=== PATIENT | female | born 1955 | race Caucasian/White ===

== ENCOUNTER 2016-09-18 11:20 | Day surgery (SDC) | payer MEDICARE ==
--- NOTE | ~2016-09-18 | EGD ---
EGD REPORT [facility] [address] [address] NAME: MÓNICA STEVE : 57 STATUS : REG [facility] PAT#: [id number] AGE: 61 ADM/REG DATE : 09/18/16 MR#: [id number] REPORT SERV DATE: 09/18/16 DICTATED BY: ABHISHEK SOLOMON DATE: 09/18/16 REPORT STATUS : Draft TRANSCRIBED BY: [facility] DATE: 09/18/16 Endoscopy Center Patient Name: Mónica Steve Date of : 1955 Attending MD: ABHISHEK SOLOMON MD Procedure Date No Time: 09/18/2016 Procedure: Upper GI endoscopy Indications: Heartburn, Suspected esophageal reflux, Follow-up of esophageal ulcer, Nausea with vomiting Referring MD: MATTHEW GRIMES MD Medicines: as per anesthesia Complications: No immediate complications. Procedure: Pre-Anesthesia Assessment: - ASA Grade Assessment: III - A patient with severe systemic disease. After obtaining informed consent, the endoscope was passed under direct vision. Throughout the procedure, the patient's blood pressure, pulse, and oxygen saturations were monitored continuously. The GIF [id number] was introduced through the mouth, and advanced to the jejunum. The upper GI endoscopy was accomplished without difficulty. The patient tolerated the procedure. Findings: The examined esophagus was normal. Evidence of a gastric bypass was found. A gastric pouch with a normal size was found. The staple line appeared intact. The gastrojejunal anastomosis was characterized by healthy appearing mucosa. This was traversed. The [id number] limb was characterized by healthy appearing mucosa. Impression: - Normal esophagus. - Gastric bypass with a normal-sized pouch intact staple line. Recommendation: - Follow an antireflux regimen. - Continue present medications. Procedure Code(s): --- Professional --- 18350, Esophagogastroduodenoscopy, flexible, transoral; diagnostic, including collection of specimen(s) by brushing or washing, when performed (separate procedure) Diagnosis Code(s): --- Professional --- Z98.84, Bariatric surgery status EGD REPORT [address] [place]. [address] NAME: MÓNICA STEVE : [birth year] STATUS : REG [facility] PAT#: [id number] AGE: 61 ADM/REG DATE : 09/18/16 MR#: [id number] REPORT SERV DATE: 09/18/16 DICTATED BY: ABHISHEK SOLOMON. DATE: 09/18/16 REPORT STATUS : Draft TRANSCRIBED BY: [employer] DATE: 09/18/16 R12, Heartburn K22.10, Ulcer of esophagus without bleeding R11.2, Nausea with vomiting, unspecified CPT copyright 2013 [employer] [employer]. All rights reserved. The codes documented in this report are preliminary and upon remote medical coder review may be revised to meet current compliance requirements. ABHISHEK SOLOMON MD 09/18/2016 12:45 PM This report has been signed electronically. Number of Addenda: 0 Note Initiated On: 09/18/2016 12:26 PM Scope Withdrawal Time 0 hours 0 minutes [address] [place] [id number]
[~2016-09-18 11:20] MED LIST: ADDER10 PO; ADDERALL20 MG PO; ADDERALL30 MG PO; AMB10 PO; BEN25 PO; CENTRUM TAB1 TAB PO; COMP5B PO; CYANO1000T PO; CYMBALTA20 PO; CYMBALTA60 PO; ESTRACE1 MG PO; FERRETTS325 MG PO; FLEX PO; FLONASE NAS; FLUCON1 PO; FOLIC PO; FRESHKOTE OPH; KLOR-CON M2020 MEQ PO; L40 PO; LEVAQUIN750 MG PO; LEXAPRO10 PO; LEXAPRO20 PO; LYRICA100 MG PO; LYRICA150 MG PO; MYCOSCROI TOP; NASACORTAQ NAS; PCET PO; PR25 PO; PROAIR HFA INH; PROTONIX PO; PROVHFA INH; REM15 PO; SEROQUEL XR400 MG PO; SEROQUEL1C PO; SEROQUEL300 MG PO; SUCR PO; SYN.05 PO; SYN075 PO; T3 PO; ULTRAM50 PO; VALIUM10 MG PO; ZANAFLEX 4 MG TA4 MG; ZANAFLEX 4 MG TA4 MG PO; ZANTAC 150 PO; ZIAC10 PO; ZIAC5 PO; ZOFRAN4 PO
[2016-11-08] MEDS ORDERED: ADDERALL30 MG PO (01:26)
[2016-11-08] MEDS ORDERED: CYMBALTA60 PO (01:26)
[2016-11-08] MEDS ORDERED: SYN1 PO (01:27)
[2016-11-08] MEDS ORDERED: FOLIC PO (01:27)
[2016-11-08] MEDS ORDERED: CALTRA600D PO (01:27)
[2016-11-08] MEDS ORDERED: VALIUM10 MG PO (01:28)
[2016-11-08] MEDS ORDERED: PROTONIX PO (01:28)
[2016-11-08] MEDS ORDERED: LYRICA100 MG PO (01:28)
[2016-11-08] MEDS ORDERED: SEROQUEL XR400 MG PO (01:28)
[2016-11-08] MEDS ORDERED: ZANAFLEX 4 MG TA4 MG PO (01:29)
[2016-11-08] MEDS ORDERED: MSCONT15 PO (01:29)
[2016-11-08] MEDS ORDERED: SEROQUEL400 MG PO (15:12)
[2016-11-11] MEDS ORDERED: CEFT2 PO (09:20)
[2016-12-23] MEDS ORDERED: PROAIR HFA INH (18:01)
[2016-12-23] MEDS ORDERED: CALTRA600D PO (18:01)
[2016-12-27] MEDS ORDERED: LYRICA100 MG PO (11:20)
[2016-12-27] MEDS ORDERED: SEROQUEL1C PO (11:22)
[2016-12-27] MEDS ORDERED: LEVAQUIN5T PO (11:23)
[2016-12-27] MEDS ORDERED: SYN88 PO (11:24)
[2017-01-26] MEDS ORDERED: VALIUM10 MG PO (16:56)
[2017-01-26] MEDS ORDERED: SYN1 PO (16:57)
[2017-01-26] MEDS ORDERED: CYMBALTA60 PO (16:57)
[2017-01-26] MEDS ORDERED: PROTONIX PO (16:57)
[2017-01-26] MEDS ORDERED: FOLIC PO (16:57)
[2017-01-26] MEDS ORDERED: MSCONT15 PO (16:57)
[2017-01-26] MEDS ORDERED: SEROQUEL400 MG PO (16:58)
[2017-01-26] MEDS ORDERED: VITAMIN B-12 PO (16:58)
[2017-01-26] MEDS ORDERED: CALTRA600D PO (16:58)
[2017-01-26] MEDS ORDERED: ZANAFLEX2 MG PO (16:58)
[2017-01-26] MEDS ORDERED: PROAIR HFA INH (16:59)
== END 2016-09-18 23:59 | disposition home or self-care (01) ==
LOC: DMU 11:20
PROVIDERS: Internal Medicine Gastroenterology
PROC: 0DJ08ZZ Inspection of Upper Intestinal Tract, Via Natural or Artificial Opening Endoscopic (ICD-10-PCS; principal; 2016-09-18 12:30)
DX: Z09 Encounter for follow-up examination after completed treatment for conditions other than malignant neoplasm (principal); K20.9 Esophagitis, unspecified; K21.9 Gastro-esophageal reflux disease without esophagitis; I10 Essential (primary) hypertension; G47.33 Obstructive sleep apnea (adult) (pediatric); D64.9 Anemia, unspecified; E03.9 Hypothyroidism, unspecified; E66.9 Obesity, unspecified; E73.9 Lactose intolerance, unspecified; J45.909 Unspecified asthma, uncomplicated; F41.9 Anxiety disorder, unspecified; F32.9 Major depressive disorder, single episode, unspecified; F98.8 Other specified behavioral and emotional disorders with onset usually occurring in childhood and adolescence; Z98.84 Bariatric surgery status; Z85.118 Personal history of other malignant neoplasm of bronchus and lung; Z92.21 Personal history of antineoplastic chemotherapy; Z92.3 Personal history of irradiation; Z87.891 Personal history of nicotine dependence; Z88.0 Allergy status to penicillin; Z88.8 Allergy status to other drugs, medicaments and biological substances; Z88.1 Allergy status to other antibiotic agents; Z96.653 Presence of artificial knee joint, bilateral; Z98.1 Arthrodesis status; Z90.49 Acquired absence of other specified parts of digestive tract; Z90.710 Acquired absence of both cervix and uterus; Z79.891 Long term (current) use of opiate analgesic; Z79.899 Other long term (current) drug therapy; Z91.09 Other allergy status, other than to drugs and biological substances; Z98.890 Other specified postprocedural states

== ENCOUNTER 2016-11-14 21:33 | Inpatient (IN) | payer MEDICARE ==
--- NOTE | ~2016-11-14 | CN ---
Consultation Report [facility] [address] [place]. [address] NAME: AMAURY DIAZ : [birth year] STATUS : ADM IN [facility]#: [id number] AGE: 61 ADM/REG DATE : 11/15/16 MR#: [id number] REPORT SERV DATE: 11/15/16 DICTATED BY: CURT VINSON DATE: 11/15/16 REPORT STATUS : Draft TRANSCRIBED BY: MODL DATE: 11/15/16 PSYCHIATRIC CONSULTATION DATE OF CONSULTATION: 11/15/2016 I reviewed this patient's current and old medical records. HISTORY OF PRESENT ILLNESS: She was admitted with progressive weakness and intermittent confusion. She had been a patient at [facility] with similar symptoms and was discharged from there just three days prior to this admission. Her PCP thought long-term placement might be in order. MEDICATIONS: Her home medication list included Adderall 30 mg b.i.d., Cymbalta 60 mg b.i.d., MS Contin 15 mg q.12 hours, Lyrica 100 mg t.i.d., Compazine 10 mg q.6 hours p.r.n., Seroquel 800 mg q.h.s., and Zanaflex 4 mg t.i.d. PAST PSYCHIATRIC HISTORY: She reports that she has suffered from severe depressive episodes over the years. Also for the past 10 years, she has had severe insomnia associated with mind racing. She has had about five admissions to [facility]. She has been followed by psychiatrist, Dr. Rich, for the past 10 years or so. FAMILY HISTORY: Her father was diagnosed with schizophrenia. She has one sibling with bipolar disorder and one with depressive symptoms. 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 She was living alone until her medical problems developed in recent months. Her son lives next door. MEDICAL HISTORY: Recently, she was treated with chemo and radiation for metastatic carcinoma of the lung. Some years ago, she had a gastric bypass surgery. MENTAL STATUS: She was pleasant and cooperative in attitude. Her mentation was somewhat slow. Her mood was mildly anxious. Her affect was appropriate. Her thinking was logical. She had no delusions. She had no hallucinations. She was oriented to "November 15"-"2016"- [facility] [facility] DIAGNOSES: 1. Delirium, of unclear etiology. 2. Bipolar disorder, not otherwise specified. RECOMMENDATIONS: I think we should restart her Cymbalta at the lower dose of 60 mg daily. Also we should restart her Seroquel at the lower dose of 400 mg q.h.s. I will follow. Consultation Report [facility] [id number] [place], [place]. [address] NAME: AMAURY DIAZ : [birth year] STATUS : ADM IN PAT#: [id number] AGE: 61 ADM/REG DATE : 11/15/16 MR#: [id number] REPORT SERV DATE: 11/15/16 DICTATED BY: CURT VINSON DATE: 11/15/16 REPORT STATUS : Draft TRANSCRIBED BY: ДМИТРИЙ DATE: 11/15/16 DK/ДМИТРИЙ Curt Vinson M.D. / [id number] CC: MD Bryanna Youssef II, M.D.
--- NOTE | ~2016-11-14 | HP ---
History And Physical [place] [place] [id number] [facility] [place]. [address] NAME: AMAURY DIAZ : [birth year] STATUS : ADM IN [facility]#: [id number] AGE: 61 ADM/REG DATE : 11/15/16 MR#: [id number] REPORT SERV DATE: 11/15/16 DICTATED BY: MARILYN BLAKE DATE: 11/14/16 REPORT STATUS : Draft TRANSCRIBED BY: ДМИТРИЙ DATE: 11/14/16 DATE OF ADMISSION: 11/15/2016 CHIEF COMPLAINT: Mild confusion, weakness, and recent urinary tract infection. HISTORY OF PRESENT ILLNESS: This is a very pleasant 61 years old female. She has a history of metastatic small cell lung cancer, status post recent radiation and chemo 5 weeks ago; chronic back pain, on chronic pain medication; bipolar disorder with depression and anxiety; obesity; hypothyroidism that recently has been admitted to [facility], and discharged on Sunday day for confusion, metabolic encephalopathy, and urinary tract infection. According to the patient's son, that she brought her to [facility]. She has been discharged home. Since discharge, she has been extremely weak, and she has intermittent episodes of confusion. It is unclear but according to the son, her psychiatrist changed her Seroquel from extended release to immediate release Seroquel 2 tablets at bedtime, but she might take more than 800 mg every evening. The patient says that she takes home medication that she was supposed to take them but nevertheless according to the patient's family, there is a possibility that the patient might take more Seroquel intentionally that has been prescribed. Due to the progressive weakness and persistent intermittent confusion, she has been brought to [facility] for further evaluation and treatment. She is leaving at home by herself, but her family lives very close to her house. She has been diagnosed last time with urinary tract infection, discharged home on antibiotics and restarting her home medications. She denied any chest pain or increasing shortness of breath. No abdominal pain. No headaches. No presyncopal or syncopal episodes. No nausea or vomiting. No diarrhea or constipation. No other complaints. PAST MEDICAL HISTORY: Significant for metastatic lung cancer, status post radio and chemotherapy. The patient was also noted to have prophylactic cranial radiation treatment. Chronic back pain, on pain medication; bipolar disorder; hypothyroidism; obesity; and GERD. PAST SURGICAL HISTORY: Include bilateral total knee replacement, spinal fusion, hysterectomy, gastric bypass, bilateral carpal tunnel, bilateral tubal ligation, and cholecystectomy. MEDICATIONS: At home include Adderall, Ceftin, Benadryl, Cymbalta, folic acid, Synthroid, MS Contin, Protonix, Lyrica, Compazine, Seroquel, and Zanaflex. REVIEW OF SYSTEMS: A 14-point review of systems has been obtained and pertinent positive has been listed into the history of present illness. Otherwise, negative except those underlying above. SOCIAL HISTORY: She does not smoke. She quit smoking more than 20 years ago. No alcohol. No IV drugs. She is a retired nurse. She lives alone, but her family lives close to her. FAMILY HISTORY: Significant for breast cancer and lung cancer. PHYSICAL EXAMINATION: History And Physical [address] [address] NAME: AMAURY DIAZ : [birth year] STATUS : ADM IN [facility]#: [id number] AGE: 61 ADM/REG DATE : 11/15/16 MR#: [id number] REPORT SERV DATE: 11/15/16 DICTATED BY: MARILYN BLAKE DATE: 11/14/16 REPORT STATUS : Draft TRANSCRIBED BY: ДМИТРИЙ DATE: 11/14/16 VITAL SIGNS: Currently, the patient is afebrile. Blood pressure 122/68, heart rate 86, respiratory rate 16, and saturating 92% on 2 L of oxygen. GENERAL: She is a chronically ill-appearing female, generalized weak, in no acute distress. She is alert and oriented x2. She answers questions appropriately, but she is slow at answering, and she does follow commands appropriately. HEENT: Shows pupils equal, round, reactive to light. Extraocular movements intact. No JVD. No lymphadenopathy. No thyromegaly appreciated. NECK: Chest eval shows bilateral air entry. Clear anteroposterior. No wheezes, crackles, or rhonchi appreciated. CARDIOVASCULAR: Regular rate and rhythm. S1, S2 positive. No S3, no S4. No murmurs, rubs, or gallops appreciated. ABDOMEN: Soft, positive bowel sounds. Nontender. No guarding. No rebound. EXTREMITIES: No clubbing, cyanosis, or edema. NEUROLOGIC: The patient is alert and oriented x2. She is not oriented to time, and she moves all her extremities appropriately and cranial nerves are intact. LABORATORY DATA: Labs from today include sodium 144, potassium 2.8, chloride 106, CO2 of 34, BUN 5, creatinine 1.05, glucose is 100. Her total bilirubin 0.5, alkaline phosphatase 135, ALT 15, AST 17. White count 4, hemoglobin 11.6, hematocrit 34.8, platelets are 129. Her UA has been negative. Chest x-ray, portable, shows no acute cardiopulmonary abnormalities. There is a port cath present. CT of the brain for 11/07/2016 show no acute abnormalities. An MRI of the brain on November 08 does not show any acute intracranial abnormalities. No metastatic disease. ASSESSMENT: This is a 61 years female presenting to [facility] with mild encephalopathy and weakness. 1. Probably multifactorial. 2. Possible unintentional medication overdose. 3. Recent urinary tract infection. 4. History of small cell lung cancer. 5. Chronic back pain on extended release morphine. 6. Hypothyroidism. 7. Bipolar disorder with depression. PLAN: 1. The patient is going to be admitted to Hospitalist Service. I am going to hold all her medications tonight. We are going to provide only p.r.n. medications as needed for pain control. We are going to order a CT of the brain without contrast in the morning, frequent neuro checks, and consult Dr. Owen from Psychiatry Service for further evaluation and recommendation regarding her medications. 2. Recent urinary tract infection. We will continue her Ceftin for 3 more days to complete her entire course of treatment. 3. Hypokalemia. We are going to replace her electrolytes. 4. Weakness. We are going to get PT/OT eval and treatment. 5. Depression with bipolar disorder. We are going to consult Dr. Owen of Psychiatry Service for further recommendation. 6. Chronic back pain. We are going to continue her Lyrica. I am going to hold her MS History And Physical [address] [place]. [address] NAME: AMAURY DIAZ : 57 STATUS : ADM IN [facility]#: [id number] AGE: 61 ADM/REG DATE : 11/15/16 MR#: [id number] REPORT SERV DATE: 11/15/16 DICTATED BY: MARILYN BLAKE DATE: 11/14/16 REPORT STATUS : Draft TRANSCRIBED BY: ДМИТРИЙ DATE: 11/14/16 Contin today and watch her clinically. 7. Hypothyroidism. We will continue her home medication. Check a TSH and a free T4. We are going to provide reasonable pain and nausea control as well as GI and DVT prophylaxis that has been discussed extensively with the patient as well as the patient's son. All the questions have been answered in full. Further workup and recommendation pending above. It is also to note that patient is going to be followed by Dr. Moe Dwyer. CF/ДМИТРИЙ Marilyn Blake M.D. / [id number] CC: MD Bryanna Youssef II, M.D.
--- NOTE | ~2016-11-14 | DS ---
Discharge Summary [facility] [address] [place]. [address] NAME: AMAURY DIAZ : 57 STATUS : DIS IN PAT#: [id number] AGE: 61 ADM/REG DATE : 11/15/16 MR#: [id number] REPORT SERV DATE: 11/21/16 DICTATED BY: JEFFRY TEJADA II DATE: 11/20/16 REPORT STATUS : Draft TRANSCRIBED BY: MODL DATE: 11/20/16 ADMISSION DATE: 11/15/2016 DISCHARGE DATE: 11/20/2016 DISCHARGE DIAGNOSES: 1. Acute encephalopathy, likely secondary to accidental medication overdose. 2. Bipolar disorder with depression. 3. Recent urinary tract infection, resolved. 4. Chronic back pain, on extended release morphine with generalized debility. 5. History of hypothyroidism. 6. History of small cell lung cancer, which is metastatic status post chemo and radiation. CONSULT: Dr. Owen with Psychiatry. BRIEF HISTORY OF PRESENT ILLNESS: The patient is a 61-year-old female with the above history, who presented to [facility] due to confusion, weakness with recent UTI. For detailed history and physical examination, please see Dr. Danielle's note from 11/15/2016. HOSPITAL COURSE: On admission, the patient's urinalysis actually was completely normal. Her labs were also fairly unremarkable. According to family, the patient may have been taking excessive amounts of her Seroquel and other medications. Dr. Owen was consulted and optimized her regimen to Seroquel 400 mg q.h.s. and continued her Cymbalta. She was previously on Adderall, which has been discontinued. After holding her medications initially, her mental status completely resolved and has mainly been in the hospital several days over the weekend due to pending placement. Physical therapy recommended senior living facility for subacute rehab. Otherwise, her chronic medical conditions are stable and she was continued on her home medications. DISCHARGE MEDICATIONS: 1. Cymbalta 60 mg p.o. daily. 2. Folic acid 1 mg p.o. daily. 3. Synthroid 100 mcg p.o. daily. 4. Protonix 40 mg p.o. daily. 5. MiraLAX one pack p.o. daily. 6. Lyrica 100 mg p.o. t.i.d. 7. Seroquel 400 mg p.o. q.h.s. 8. Compazine 10 mg p.o. q.6 hours p.r.n. nausea. 9. Tylenol 650 mg p.o. q.4 hours p.r.n. pain. 10.MS Contin 15 mg p.o. q.12 hours. 11.Senna two tablets p.o. q.h.s. p.r.n. constipation. 12.Zanaflex 4 mg p.o. t.i.d. 13.Benadryl 25 mg p.o. daily p.r.n. sleep or allergies. DISCHARGE INSTRUCTIONS: The patient will be discharged to [facility] for further rehab. Discharge Summary [address] [place]. [address] NAME: AMAURY DIAZ : 57 STATUS : DIS IN PAT#: [id number] AGE: 61 ADM/REG DATE : 11/15/16 MR#: [id number] REPORT SERV DATE: 11/21/16 DICTATED BY: EJFFRY TEJADA II DATE: 11/20/16 REPORT STATUS : Draft TRANSCRIBED BY: ДМИТРИЙ DATE: 11/20/16 DICTATED BY: MD ROCCO Youssef II/ДМИТРИЙ Jeffry Tejada II, MD / [id number] CC: MD Bryanna Youssef II, M.D.
[2016-11-14 21:12] LABS: BASOPHILS 0.3 %; BASOPHILS ABSOLUTE 0.01 10/3/uL (0.0-0.16); EOSINOPHILS 1.3 %; EOSINOPHILS ABSOLUTE 0.05 10/3/uL (0.0-0.53); HEMATOCRIT 34.9 % (36.0-48.0); HEMOGLOBIN 11.6 g/dL (12.0-16.0); LYMPHOCYTES 23.7 %; LYMPHOCYTES ABSOLUTE 0.94 10/3/uL (0.67-4.30); MANUAL DIFF NO %; MEAN CORPUS HGB CONC 33.2 g/dL (32.0-36.0); MEAN CORPUSCULAR HEMOGLOB 31.1 pg (26.0-34.0); MEAN CORPUSCULAR VOLUME 93.6 fL (80-100); MEAN PLATELET VOLUME 10.6 fL (9.2-13.0); MONOCYTES 11.1 %; MONOCYTES ABSOLUTE 0.44 10/3/uL (0.21-1.20); NEUTROPHILS 63.6 %; NEUTROPHILS ABSOLUTE 2.53 10/3/uL (2.02-8.40); PLATELET COUNT 129 10/3/uL (150-400); RBC DISTRIBUTION WIDTH 12.9 % (12.0-16.0); RED CELL COUNT 3.73 10/6/uL (4.0-5.6)
[2016-11-14 21:14] LABS: ASCORBIC ACID (UR NOT ORDER) NEG (NEG); BILIRUBIN, URINE NEGATIVE (NEG); ER URINALYSIS TAT 0 Hrs 08 Mins; KETONE, URINE NEGATIVE (NEG); LEUKOCYTE ESTERASE(NOT OR NEG (NEG); WBC (NOT ORDERED) (RFLEX) 1 (0-5)
[2016-11-14 21:15] LABS: NITRITE (URINE) NEG (NEG)
[2016-11-14 21:28] LABS: A/G RATIO 0.9 (0.7-1.9); ALKALINE PHOSPHATASE 135 U/L (45-117); CALCIUM, SERUM 8.6 MG/DL (8.5-10.4); CHLORIDE, SERUM 106 MMOL/L (96-112); CO2 (CARBON DIOXIDE) 34 MMOL/L (24-34); CREATININE 1.05 MG/DL (0.55-1.02); GFR AFRICAN AMERICAN 67 ML/MIN (>=60); GFR NON AFRICAN AMERICAN 58 ML/MIN (>=60); GLOBULIN 3.2 G/DL (2.5-4.1); SGOT(AST) 17 U/L (5-40); SGPT(ALT) 15 U/L (5-65); SODIUM, SERUM 144 MMOL/L (135-148); TOTAL BILIRUBIN 0.5 MG/DL (0-1.2); TOTAL PROTEIN 6.2 G/DL (6.0-8.5)
[2016-11-14 21:30] LABS: BUN (BLOOD UREA NITROGEN) 5 MG/DL (6-23); GLUCOSE, SERUM 100 MG/DL (60-99); POTASSIUM, SERUM 2.8 MMOL/L (3.5-5.3)
[~2016-11-14 21:33] MED LIST changes: +CALTRA600D PO; +CEFT2 PO; +MSCONT15 PO; +SEROQUEL400 MG PO; +SYN1 PO
[2016-11-14] MEDS ORDERED: CEFT2 PO (23:22)
[2016-11-14] MEDS ORDERED: ZANAFLEX 4 MG TA4 MG PO (23:22)
[2016-11-14] MEDS ORDERED: SEROQUEL400 MG PO (23:25)
[2016-11-14] MEDS ORDERED: SYN1 PO (23:28)
[2016-11-14] MEDS ORDERED: MSCONT15 PO (23:28)
[2016-11-14] MEDS ORDERED: FOLIC PO (23:28)
[2016-11-14] MEDS ORDERED: PROTONIX PO (23:29)
[2016-11-14] MEDS ORDERED: COMP10B PO (23:29)
[2016-11-14] MEDS ORDERED: ADDERALL30 MG PO (23:30)
[2016-11-14] MEDS ORDERED: LYRICA100 MG PO (23:32)
[2016-11-14] MEDS ORDERED: CYMBALTA60 PO (23:32)
[2016-11-14] MEDS ORDERED: BEN25 PO (23:34)
[2016-11-15 07:23] LABS: BASOPHILS 0.3 %; BASOPHILS ABSOLUTE 0.01 10/3/uL (0.0-0.16); EOSINOPHILS 2.3 %; EOSINOPHILS ABSOLUTE 0.08 10/3/uL (0.0-0.53); HEMATOCRIT 34.4 % (36.0-48.0); HEMOGLOBIN 11.3 g/dL (12.0-16.0); LYMPHOCYTES 19.9 %; LYMPHOCYTES ABSOLUTE 0.68 10/3/uL (0.67-4.30); MEAN CORPUS HGB CONC 32.8 g/dL (32.0-36.0); MEAN CORPUSCULAR HEMOGLOB 31.6 pg (26.0-34.0); MEAN CORPUSCULAR VOLUME 96.1 fL (80-100); MEAN PLATELET VOLUME 10.9 fL (9.2-13.0); MONOCYTES 11.1 %; MONOCYTES ABSOLUTE 0.38 10/3/uL (0.21-1.20); NEUTROPHILS 66.4 %; NEUTROPHILS ABSOLUTE 2.27 10/3/uL (2.02-8.40); PLATELET COUNT 129 10/3/uL (150-400); RED CELL COUNT 3.58 10/6/uL (4.0-5.6); WHITE BLOOD CELLS 3.4 10/3/uL (4.5-10.5)
[2016-11-15 07:24] LABS: MANUAL DIFF NO %
[2016-11-15 07:42] LABS: INTERNATIONAL NORMAL RATI 1.1 UNITS (-); PROTIME (NOT ORD) 13.8 SEC (12.0-14.5)
[2016-11-15 07:48] LABS: PARTIAL THROMBO TIME 25.7 SEC (22.5-37.2)
[2016-11-15 07:53] LABS: GLYCOHEMOGLOBIN (HbA1c) 5.2 % (4.7-6.1)
[2016-11-15 10:53] LABS: A/G RATIO 0.9 (0.7-1.9); ALBUMIN 2.7 G/DL (3.5-5.0); BUN (BLOOD UREA NITROGEN) 5 MG/DL (6-23); CALCIUM, SERUM 8.7 MG/DL (8.5-10.4); CHLORIDE, SERUM 109 MMOL/L (96-112); CO2 (CARBON DIOXIDE) 31 MMOL/L (24-34); CREATININE 1.11 MG/DL (0.55-1.02); FERRITIN 177 NG/ML (8-252); FREE T4 1.13 NG/DL (0.76-1.46); GFR AFRICAN AMERICAN 63 ML/MIN (>=60); GFR NON AFRICAN AMERICAN 54 ML/MIN (>=60); GLUCOSE, SERUM 109 MG/DL (60-99); IRON BINDING CAPACITY 171 MCG/DL (225-410); IRON, SERUM 29 MCG/DL (35-150); SGOT(AST) 16 U/L (5-40); SGPT(ALT) 15 U/L (5-65); SODIUM, SERUM 145 MMOL/L (135-148); TOTAL BILIRUBIN 0.3 MG/DL (0-1.2); TOTAL PROTEIN 5.7 G/DL (6.0-8.5); TROPONIN I <0.02 NG/ML (<0.05)
[2016-11-15 10:54] LABS: ACETAMINOPHEN LEVEL (TYLENOL) < 2.0 MCG/ML (10.0-20.0); ALCOHOL < 10 MG/DL (0); ALKALINE PHOSPHATASE 123 U/L (45-117); POTASSIUM, SERUM 3.5 MMOL/L (3.5-5.3); SALICYLATE < 1.7 MG/DL (-); ULTRASENSITIVE TSH 0.608 MCIU/ML (0.358-3.740)
[2016-11-16 05:18] LABS: A/G RATIO 0.9 (0.7-1.9); ALBUMIN 2.8 G/DL (3.5-5.0); ALKALINE PHOSPHATASE 122 U/L (45-117); BUN (BLOOD UREA NITROGEN) 5 MG/DL (6-23); CALCIUM, SERUM 8.9 MG/DL (8.5-10.4); CHLORIDE, SERUM 109 MMOL/L (96-112); CO2 (CARBON DIOXIDE) 29 MMOL/L (24-34); CREATININE 0.96 MG/DL (0.55-1.02); GFR AFRICAN AMERICAN 75 ML/MIN (>=60); GFR NON AFRICAN AMERICAN 64 ML/MIN (>=60); GLUCOSE, SERUM 102 MG/DL (60-99); POTASSIUM, SERUM 3.9 MMOL/L (3.5-5.3); SGOT(AST) 18 U/L (5-40); SGPT(ALT) 16 U/L (5-65); SODIUM, SERUM 145 MMOL/L (135-148); TOTAL BILIRUBIN 0.3 MG/DL (0-1.2); TOTAL PROTEIN 5.8 G/DL (6.0-8.5)
[2016-11-16 05:42] LABS: PROCALCITONIN <0.05 ng/mL (<0.5)
[2016-11-16 08:30] LABS: BASOPHILS 0.3 %; BASOPHILS ABSOLUTE 0.01 10/3/uL (0.0-0.16); EOSINOPHILS 2.2 %; EOSINOPHILS ABSOLUTE 0.08 10/3/uL (0.0-0.53); HEMATOCRIT 34.2 % (36.0-48.0); HEMOGLOBIN 11.1 g/dL (12.0-16.0); IMMATURE GRANULOCYTES 0.3 %; IMMATURE GRANULOCYTES ABSOLUTE 0.01 10/3/uL (0.0-0.11); LYMPHOCYTES 18.4 %; LYMPHOCYTES ABSOLUTE 0.66 10/3/uL (0.67-4.30); MEAN CORPUS HGB CONC 32.5 g/dL (32.0-36.0); MEAN CORPUSCULAR HEMOGLOB 31.4 pg (26.0-34.0); MEAN CORPUSCULAR VOLUME 96.9 fL (80-100); MEAN PLATELET VOLUME 10.9 fL (9.2-13.0); MONOCYTES ABSOLUTE 0.36 10/3/uL (0.21-1.20); NEUTROPHILS 68.8 %; NEUTROPHILS ABSOLUTE 2.47 10/3/uL (2.02-8.40); PLATELET COUNT 129 10/3/uL (150-400); RBC DISTRIBUTION WIDTH 13.2 % (12.0-16.0); RED CELL COUNT 3.53 10/6/uL (4.0-5.6); WHITE BLOOD CELLS 3.6 10/3/uL (4.5-10.5)
[2016-11-16 08:31] LABS: MANUAL DIFF NO %
[2016-11-17 06:47] LABS: BASOPHILS 0.3 %; BASOPHILS ABSOLUTE 0.01 10/3/uL (0.0-0.16); EOSINOPHILS 2.5 %; EOSINOPHILS ABSOLUTE 0.08 10/3/uL (0.0-0.53); HEMATOCRIT 36.5 % (36.0-48.0); HEMOGLOBIN 11.8 g/dL (12.0-16.0); IMMATURE GRANULOCYTES 0.3 %; IMMATURE GRANULOCYTES ABSOLUTE 0.01 10/3/uL (0.0-0.11); LYMPHOCYTES 24.1 %; LYMPHOCYTES ABSOLUTE 0.77 10/3/uL (0.67-4.30); MEAN CORPUS HGB CONC 32.3 g/dL (32.0-36.0); MEAN CORPUSCULAR HEMOGLOB 31.2 pg (26.0-34.0); MEAN CORPUSCULAR VOLUME 96.6 fL (80-100); MONOCYTES 11.3 %; MONOCYTES ABSOLUTE 0.36 10/3/uL (0.21-1.20); NEUTROPHILS 61.5 %; NEUTROPHILS ABSOLUTE 1.97 10/3/uL (2.02-8.40); PLATELET COUNT 132 10/3/uL (150-400); RED CELL COUNT 3.78 10/6/uL (4.0-5.6); WHITE BLOOD CELLS 3.2 10/3/uL (4.5-10.5)
[2016-11-17 06:52] LABS: MANUAL DIFF NO %
[2016-11-17 06:54] LABS: CALCIUM, SERUM 8.6 MG/DL (8.5-10.4); CHLORIDE, SERUM 107 MMOL/L (96-112); CO2 (CARBON DIOXIDE) 31 MMOL/L (24-34); CREATININE 1.04 MG/DL (0.55-1.02); GFR AFRICAN AMERICAN 68 ML/MIN (>=60); GFR NON AFRICAN AMERICAN 58 ML/MIN (>=60); GLUCOSE, SERUM 96 MG/DL (60-99); POTASSIUM, SERUM 4.1 MMOL/L (3.5-5.3); SODIUM, SERUM 141 MMOL/L (135-148)
[2016-11-17 06:55] LABS: BUN (BLOOD UREA NITROGEN) 9 MG/DL (6-23)
[2016-11-18 06:44] LABS: BASOPHILS 0 %; EOSINOPHILS 2.1 %; EOSINOPHILS ABSOLUTE 0.08 10/3/uL (0.0-0.53); HEMATOCRIT 34.6 % (36.0-48.0); HEMOGLOBIN 11.3 g/dL (12.0-16.0); LYMPHOCYTES 20.1 %; LYMPHOCYTES ABSOLUTE 0.78 10/3/uL (0.67-4.30); MEAN CORPUS HGB CONC 32.7 g/dL (32.0-36.0); MEAN CORPUSCULAR HEMOGLOB 31.4 pg (26.0-34.0); MEAN CORPUSCULAR VOLUME 96.1 fL (80-100); MEAN PLATELET VOLUME 10.7 fL (9.2-13.0); MONOCYTES 7.7 %; NEUTROPHILS 70.1 %; NEUTROPHILS ABSOLUTE 2.72 10/3/uL (2.02-8.40); PLATELET COUNT 133 10/3/uL (150-400); RBC DISTRIBUTION WIDTH 13.1 % (12.0-16.0); WHITE BLOOD CELLS 3.9 10/3/uL (4.5-10.5)
[2016-11-18 06:45] LABS: MANUAL DIFF NO %
[2016-11-18 06:53] LABS: BUN (BLOOD UREA NITROGEN) 19 MG/DL (6-23); CALCIUM, SERUM 8.7 MG/DL (8.5-10.4); CHLORIDE, SERUM 105 MMOL/L (96-112); CO2 (CARBON DIOXIDE) 30 MMOL/L (24-34); CREATININE 1.02 MG/DL (0.55-1.02); GFR AFRICAN AMERICAN 69 ML/MIN (>=60); GFR NON AFRICAN AMERICAN 60 ML/MIN (>=60); GLUCOSE, SERUM 92 MG/DL (60-99); POTASSIUM, SERUM 4.2 MMOL/L (3.5-5.3); SODIUM, SERUM 143 MMOL/L (135-148)
[2016-12-23] MEDS ORDERED: PROAIR HFA INH (18:01)
[2016-12-23] MEDS ORDERED: CALTRA600D PO (18:01)
[2016-12-27] MEDS ORDERED: LYRICA100 MG PO (11:20)
[2016-12-27] MEDS ORDERED: SEROQUEL1C PO (11:22)
[2016-12-27] MEDS ORDERED: LEVAQUIN5T PO (11:23)
[2016-12-27] MEDS ORDERED: SYN88 PO (11:24)
[2017-01-26] MEDS ORDERED: VALIUM10 MG PO (16:56)
[2017-01-26] MEDS ORDERED: CYMBALTA60 PO (16:57)
[2017-01-26] MEDS ORDERED: MSCONT15 PO (16:57)
[2017-01-26] MEDS ORDERED: SYN1 PO (16:57)
[2017-01-26] MEDS ORDERED: FOLIC PO (16:57)
[2017-01-26] MEDS ORDERED: PROTONIX PO (16:57)
[2017-01-26] MEDS ORDERED: ZANAFLEX2 MG PO (16:58)
[2017-01-26] MEDS ORDERED: SEROQUEL400 MG PO (16:58)
[2017-01-26] MEDS ORDERED: CALTRA600D PO (16:58)
[2017-01-26] MEDS ORDERED: VITAMIN B-12 PO (16:58)
[2017-01-26] MEDS ORDERED: PROAIR HFA INH (16:59)
== END 2016-11-20 16:49 | DRG 917 ==
LOC: ER 21:33 → 4EA 11-15 00:31
PROVIDERS: Emergency Medicine; Internal Medicine; Nurse Practitioner Family
DX: T43.591A Poisoning by other antipsychotics and neuroleptics, accidental (unintentional), initial encounter (principal); G92 Toxic encephalopathy; C34.90 Malignant neoplasm of unspecified part of unspecified bronchus or lung; E03.9 Hypothyroidism, unspecified; F31.9 Bipolar disorder, unspecified
CPT/HCPCS: 36600; 70450; 71010; 80048; 80053; 80307; 81001; 82140; 82330; 82607; 82728; 82746; 82803; 82947; 83036; 83540; 83550; 83615; 83735; 84100; 84132; 84145; 84295; 84439; 84443; 84484; 85014; 85025; 85610; 85652; 85730; 93005; 97110-GP; 97116-GP; 97161-GP; 97165-GO; 99285; A9270-GY; G8978-CK-GP; G8979-CJ-GP; G8987-CK-GO; G8988-CJ-GO